=== PATIENT | male | born 1935 | race Caucasian/White ===

== ENCOUNTER 2017-07-17 05:58 | Day surgery (SDC) | payer MEDICARE, OTHER ==
[2017-07-03 11:01] LABS: HEMATOCRIT 40.9 % (37.9-51.0); HEMOGLOBIN 13.9 g/dL (13.5-17.0); MEAN CORPUSCULAR HEMOGLOBIN 33.1 pg (27.0-33.4); MEAN CORPUSCULAR HGB CONC 33.9 g/dL (32.0-36.0); MEAN CORPUSCULAR VOLUME 97 fl (80-97); PLATELET COUNT 134 10^3/uL (150-450); RED CELL DISTRIBUTION WIDTH 14.6 % (11.5-14.0); WHITE BLOOD COUNT 7.2 10^3/uL (4.0-10.5)
[2017-07-03 11:09] LABS: INTERNATIONAL RATION (INR) 1.04; PROTHROMBIN TIME 14.3 SEC (11.4-15.4)
[2017-07-03 11:28] LABS: ANION GAP 9 (5-19); BLOOD UREA NITROGEN 26 mg/dL (7-20); CARBON DIOXIDE 33 mmol/L (22-30); CHLORIDE 101 mmol/L (98-107); GLUCOSE 98 mg/dL (75-110); POTASSIUM 4.4 mmol/L (3.6-5.0); SODIUM 143.3 mmol/L (137-145)
--- NOTE | 2017-07-04 10:35 | EKG REPORT ---
SEVERITY:- ABNORMAL ECG - SINUS BRADYCARDIA NONSPECIFIC INTRAVENTRICULAR CONDUCTION DELAY : Confirmed by: Ac Emanuel 04-Jul-2017 10:34:39
[~2017-07-17 05:58] MED LIST: CEFAZOLIN 1 GM/D5W RTU 1 GM/50 ML RTUPB IV PRN; LACTATED RINGERS 1000 ML IV PRN
[2017-07-17 06:53] LABS: INTERNATIONAL RATION (INR) 0.99; PROTHROMBIN TIME 13.7 SEC (11.4-15.4)
[2017-07-17 06:54] LABS: PARTIAL THROMBOPLASTIN TIME 32.7 SEC (23.5-35.8)
[2017-07-17] MEDS ORDERED: FENTANYL CITRATE INJ/PF 100 MCG/2 ML AMPUL ONE (07:20)
[2017-07-17] MEDS ORDERED: MIDAZOLAM 2 MG/2 ML INJ ONE (07:21)
[2017-07-17] MEDS ORDERED: PROPOFOL INJ 200 MG/20 ML VIAL IV ONE (07:21)
[2017-07-17] MEDS ORDERED: CARVEDILOL 3.125 MG TABLET PO ONE (07:30)
[2017-07-17] MEDS ORDERED: SODIUM BICARBONATE 8.4% INJ 50 MEQ/50 ML DISP.SYRIN ONE (07:41)
[2017-07-17] MEDS ORDERED: LIDOCAINE 1% INJ-PF (10 MG/ML) 30 ML SDV ONE (07:41)
[2017-07-17] MEDS ORDERED: LIDOCAINE 2%/EPINEPHRINE INJ 20 ML VIAL ONE (07:42)
[2017-07-17] MEDS ORDERED: ONDANSETRON HCL INJ/PF 4 MG/2 ML SDV IV PRN (08:35)
[2017-07-17] MEDS ORDERED: DIPHENHYDRAMINE HCL 50 MG/ML VIAL IV PRN (08:35)
[2017-07-17] MEDS ORDERED: FENTANYL CITRATE INJ/PF 100 MCG/2 ML AMPUL IV PRN ×3 (08:35)
--- NOTE | 2017-07-17 09:50 | Operative Report ---
Operative Report DATE OF SURGERY: 07/17/17 PREOPERATIVE DIAGNOSIS: Basal cell carcinoma of the midline chest with positive lateral margins POSTOPERATIVE DIAGNOSIS: Same OPERATION: Excision of basal cell carcinoma of the midline chest with frozen section margin control and reconstruction with a boomerang sliding advancement flap SURGEON: ADRIANNA PROCTOR ANESTHESIA: LMAC TISSUE REMOVED OR ALTERED: Basal cell carcinoma COMPLICATIONS: None ESTIMATED BLOOD LOSS: Minimal PROCEDURE: Patient seen and was marked prior to being brought into the operating room. Patient was brought into the operating room and placed on the operating room table in a supine position. Patient was then prepped with a Betadine scrub and Betadine solution and draped in a sterile and aseptic manner. The area was then marked. 12 O'clock was marked towards the neck 3 O'clock was marked towards the left side 6:00 was marked towards the abdomen 9:00 was marked towards the right side The area was then anesthetized with 2% lidocaine with epinephrine and bicarbonate for its anesthetic and hemostatic effects. The area was then excised and marked at 12:00. The specimen was sent for frozen section. The results came back that the deep and lateral margins were free. We had considered a primary closure but this would go against the natural relaxed skin tension lines. A primary closure would be too tight and would have increased chance of dehiscence. The flap design that would be best for the patient would need to the least amount of tension and it was felt that more of a horizontal orientation would be better than a vertical orientation because of his breast anatomy. Anything else would leave more of a scar so we decided to use a boomerang flap reconstruction which would camouflage the scar better and take tension off of the closure so that would be less chances of complications. Then went ahead and outlined the flap and anesthetized it. Then incised the flap and developed a flap maintaining the subdermal plexus. Then we undermined 360 to allow for plate like scarring and minimize trap door deformity. Throughout the case hemostasis was achieved with the bipolar. We then sutured the flap into its new position using 3-0 Vicryl for the subcutaneous and deep dermis. Skin was closed with a running subcuticular suture stitch using 3-0 PDS with knots being tied on the outside. And 3-0 PDS suture was used for support and placed in the central area of the incision. We then applied tincture benzoin and Steri-Strips followed by a light pressure dressing. Patient was then reversed from anesthesia and taken to the [facility] for recovery. The patient tolerated well. There were no complications. Lesion size was approximately 2.2 x 2.4 cm please see pathology for actual size. Portions of this note may be dictated using [employer] voice recognition software. Occasional variations and spelling and vocabulary could be possible and are unintentional. Additionally, there is a chance that some errors may not be caught or corrected. Please notify the author of any discrepancies noted or if any statements are unclear.
--- NOTE | 2017-07-17 09:52 | PDOC DISCHARGE SUMMARY ---
Discharge Summary (SDC) - Discharge Final Diagnosis: Basal cell carcinoma of the midline chest Date of Surgery: 07/17/17 Condition: Good Treatment or Instructions: Leave the top dressing on for 2 days, then removed. Leave the steri-strip tapes on for 5 days, then removal. Then cleaning wound with peroxide and apply Neosporin/bacitracin 3 times per day. Antibiotics for 1 day, then discontinue. Elevate operative area to decrease swelling. Do not strain, or lift heavy objects. Call for excessive bleeding, increased temperature of 101, uncontrolled pain, or excessive nausea or vomiting. You may reach Dr. Waters through his office at [phone]. In the event of an emergency after hours, then contact Dr. Waters through [facility]. Return to the office for a postop check on . The time will be scheduled by the nursing staff of [facility] prior to discharge. Please give the patient a copy of their labs and EKG so they can bring this to their PMD. Thank you Portions of this note may be dictated using [employer] voice recognition software. Occasional variations and spelling and vocabulary could be possible and are unintentional. Additionally, there is a chance that some errors may not be caught or corrected. Please notify the offer of any discrepancies noted or if any statements are unclear. Referrals: BRYANNA COLLINS MD [Primary Care Provider] - Discharge Diet: As Tolerated Report the Following to Your Physician Immediately: Unusual Bleeding - Keep chest elevated. No bending or straining.
--- NOTE | 2017-07-17 11:40 | PDOC PROGRESS REPORT ---
Subjective Progress Note for:: 07/17/17 Reason For Visit: C44.519 BASAL CELL CARCINOMA OF SKIN OF OTHER PART Leave the top dressing on for 2 days, then removed. Leave the steri-strip tapes on for 5 days, then removal. Then cleaning wound with peroxide and apply Neosporin/bacitracin 3 times per day. Antibiotics for 1 day, then discontinue. Elevate operative area to decrease swelling. Do not strain, or lift heavy objects. Call for excessive bleeding, increased temperature of 101, uncontrolled pain, or excessive nausea or vomiting. You may reach Dr. Waters through his office at [phone]. In the event of an emergency after hours, then contact Dr. Waters through [facility]. Return to the office for a postop check on . The time will be scheduled by the nursing staff of [facility] prior to discharge. Please give the patient a copy of their labs and EKG so they can bring this to their PMD. Thank you Portions of this note may be dictated using [employer] voice recognition software. Occasional variations and spelling and vocabulary could be possible and are unintentional. Additionally, there is a chance that some errors may not be caught or corrected. Please notify the offer of any discrepancies noted or if any statements are unclear. Physical Exam Vital Signs: Temp Pulse Resp BP Pulse Ox 97.6 F 45 L 18 123/66 99 07/17/17 10:20 07/17/17 10:50 07/17/17 10:50 07/17/17 10:50 07/17/17 10:50 Intake & Output 07/16/17 07/17/17 07/18/17 06:59 06:59 06:59 Intake Total 0 500 Balance 0 500 Weight 90.72 kg Results Laboratory Results: 07/03/17 10:19 07/17/17 06:35 07/17/17 06:35 Potassium 4.0
[2017-07-17 11:56] VITALS: BP 124/55
== END 2017-07-17 11:20 | disposition home or self-care (01) ==
LOC: OROUT 05:58
PROVIDERS: ATTEND Plastic Surgery
PROC: 0HB5XZZ Excision of Chest Skin, External Approach (ICD-10-PCS; 2017-07-17)
PROC: 0HX5XZZ Transfer Chest Skin, External Approach (ICD-10-PCS; principal; 2017-07-17 08:00)
DX: C44.519 Basal cell carcinoma of skin of other part of trunk (principal); I10 Essential (primary) hypertension; M19.90 Unspecified osteoarthritis, unspecified site; Z96.659 Presence of unspecified artificial knee joint; Z79.899 Other long term (current) drug therapy; Z79.82 Long term (current) use of aspirin; Z79.01 Long term (current) use of anticoagulants; Z79.891 Long term (current) use of opiate analgesic; Z86.73 Personal history of transient ischemic attack (TIA), and cerebral infarction without residual deficits
CPT/HCPCS: 93005; 36415 ×2; 84132; 85027; 85610 ×2; 85730 ×2; 80048; 88305 ×2; 88331 ×2; 93010; 14000; J2250; J0690; J3490 ×2; J2704; A9270; 400; J3010

== ENCOUNTER → 2017-08-21 | Outpatient (CLI) | payer MEDICARE, OTHER ==
--- NOTE | 2017-08-21 13:56 | XCELERA REPORT ---
[address] [address] Lower Extremity Arterial Evaluation Name: JAYME LAI Age: 82 yrs Gender: Male : 1935 Patient Status: Outpatient Patient Location: Study Date: 08/21/2017 08:58 AM Procedure: A color flow and duplex scan of the lower extremity arteries was performed bilaterally with velocity and waveform anaylsis. Ankle brachial indicies performed. Reason For Study: PVD Ordering Physician: SOCORRO LOW Performed By: Lydia Parekh Measurements and Calculations Right Left AREA MANAGER PSV 143.8 172.9 cm/sec Prox PFA PSV 75.1 79.1 cm/sec Prox SFA PSV 125.1 127.0 cm/sec Mid SFA PSV -115.0 -72.2 cm/sec Dist SFA PSV -83.0 -43.1 cm/sec Prox Pop A PSV 62.0 56.3 cm/sec Dist JANIA PSV 73.3 28.6 cm/sec Dist EXTRUDER OPERATOR HORIZONTAL PSV -71.9 52.8 cm/sec Matt Pedis PSV 55.2 12.7 cm/sec Right Side Arterial Evaluation Normal velocity and triphasic waveforms noted from the Common Femoral artery to the Posterior Tibial artery .Biphasic in the Deep Femoral and Anterior Tibial arteries. 20-49 % stenosis at the Deep Femoral and Anterior Tibial arteries. Ankle Brachial index is 1.13. Left Side Arterial Evaluation Normal velocity and triphasic waveforms noted from the Common Femoral artery to the Popliteal artery .Biphasic in the Deep Femoral and infrageniculate arteries. Monophasic, reduced flow in the Dorsalis Pedis artery. 20-49 % stenosis at the Deep Femoral and infrageniculate . Ankle Brachial index is 1.15. Interpretation Summary Mild hemodynamically significant lesions in the right lower extremity only, on duplex imaging, at rest. Moderate hemodynamically significant lesions in the left lower extremity only, on duplex imaging, at rest. : SOCORRO LOW > Hayden Olivares
== END ==
LOC: SP 08:37
PROVIDERS: ATTEND Podiatrist Foot Surgery
DX: I73.9 Peripheral vascular disease, unspecified (principal)
CPT/HCPCS: 93925

== ENCOUNTER → 2017-09-03 | Outpatient (CLI) | payer MEDICARE, OTHER ==
--- NOTE | 2017-09-03 15:12 | RADIOLOGY REPORT (SQ) ---
EXAM DESCRIPTION: CAROTID DOPPLER COMPLETED DATE/TIME: 09/03/2017 2:47 pm REASON FOR STUDY: STENOSIS I65.23 OCCLUSION AND STENOSIS OF BILATERAL CAROTID ARTERIES COMPARISON: None. TECHNIQUE: Grayscale ultrasound, Doppler velocity and spectra, and color Doppler images acquired of the extra-cranial carotid and vertebral arteries. Images stored on PACS. LIMITATIONS: None. FINDINGS: RIGHT CAROTID CCA Velocities: Within normal limits. ICA Velocities Peak systolic 1.54 m/s. End diastolic 0.35 m/s. Proximal ICA/CCA peak systolic ratio 2.01. Atherosclerotic plaquing is identified. The flow velocities are consistent with a 50 to 69% stenosis in the right internal carotid artery LEFT CAROTID CCA Velocities: Within normal limits. ICA Velocities Peak systolic 1.22 m/s. End diastolic 0.25 m/s. Proximal ICA/CCA peak systolic ratio 1.2. Spectra normal. No significant plaque. VERTEBRAL ARTERIES: Antegrade flow. Normal waveforms. SUBCLAVIAN ARTERIES: No finding. OTHER: No other significant finding. IMPRESSION: Flow velocities in the right internal carotid artery are consistent with a 50 to 69% cheryl nosis. No other hemodynamically significant stenoses are identified. COMMENT: Quality ID #[id number]: Velocity criteria are extrapolated from the diameter data as defined by t he Society of Radiologists in Ultrasound Consensus Conference. Radiology 2003: 229; 340-346. TECHNICAL DOCUMENTATION: JOB ID: [id number] [employer]- All Rights Reserved Reading location - IP/workstation name: [email or web address]
== END ==
LOC: SP 12:52
PROVIDERS: ATTEND Internal Medicine Cardiovascular Disease
DX: I65.23 Occlusion and stenosis of bilateral carotid arteries (principal)
CPT/HCPCS: 93880

== ENCOUNTER 2018-09-23 21:03 | Emergency (ER) | payer MEDICARE, OTHER ==
[2018-09-23] MEDS ORDERED: ASPIRIN 81 MG TABLET, CHEWABLE PO ONE (21:10)
--- NOTE | 2018-09-23 21:16 | ER Document Report ---
ED Medical Screen (RME) - General Chief Complaint: Urinary Incontinence Stated Complaint: WEAKNESS Time Seen by Provider: 09/23/18 21:09 Primary Care Provider: LOVE LIRIANO MD [Primary Care Provider] - Follow up as needed Notes: Pt. stated he had a procedure on his prostate on Sunday and has had bleeding from his penis ever since. Stated he feels very weak and lightheaded, Heaviness in chest. Pt. is diaphoretic and tachypenic. I have greeted and performed a rapid initial assessment of this patient. A comprehensive ED assessment and evaluation of the patient, analysis of test results and completion of the medical decision making process will be conducted by additional ED providers. TRAVEL OUTSIDE OF THE [place] IN LAST 30 DAYS: No - Related Data Allergies/Adverse Reactions: tuberculin, purified protein deriva [Tuberculin,Purif.Prot.Deriv.] Allergy (Severe, Verified 07/17/17 07:11) Past Medical History - Past Medical History Cardiac Medical History: Reports: Hx Hypercholesterolemia, Hx Hypertension Denies: Hx Coronary Artery Disease, Hx Heart Attack Pulmonary Medical History: Denies: Hx Asthma, Hx Bronchitis, Hx COPD, Hx Pneumonia Neurological Medical History: Reports: Hx Cerebrovascular Accident - 3 YRS AGO. Denies: Hx Seizures GI Medical History: Denies: Hx Hepatitis, Hx Hiatal Hernia, Hx Ulcer Musculoskeltal Medical History: Reports Hx Arthritis - GENERALIZED Infectious Medical History: Denies: Hx Hepatitis Past Surgical History: Reports: Hx Appendectomy, Hx Cholecystectomy. Denies: Hx Open Heart Surgery, Hx Pacemaker - Immunizations Hx Diphtheria, Pertussis, Tetanus Vaccination: No History of Influenza Vaccine for 04/2017 - 08/2017 Season: Yes Influenza Administration Date for 04/2017 - 08/2017 Season: 05/02/18 Doctor's Discharge - Discharge Referrals: LOVE LIRIANO MD [Primary Care Provider] - Follow up as needed
--- NOTE | 2018-09-23 21:26 | EKG REPORT ---
SEVERITY:- ABNORMAL ECG - ATRIAL FLUTTER BORDERLINE T ABNORMALITIES, INFERIOR LEADS : Confirmed by: Belem Roman MD 23-Sep-2018 21:25:51
--- NOTE | 2018-09-23 21:42 | RADIOLOGY REPORT (SQ) ---
XR CHEST 1 VIEW HISTORY: SOB/weakness. COMPARISON: None. FINDINGS: The heart size is normal. No consolidation, pleural effusion, or pneumothorax is seen. Generalized osteopenia is present. IMPRESSION: No evidence of acute cardiopulmonary disease.
--- NOTE | 2018-09-23 22:32 | ER Document Report ---
ED General - General Chief Complaint: Urinary Incontinence Stated Complaint: WEAKNESS Time Seen by Provider: 09/23/18 21:09 Primary Care Provider: MARY CUELLAR MD [NO LOCAL MD] - Follow up tomorrow Notes: Patient is a 83-year-old male who presents with complaint of urinary distention. Chief complaints of weakness however the patient says he does not feel weak. He says he feels well except for the pain and the sensation that he cannot empty his bladder. Patient saw Dr. Cuellar, urologist, on Sunday and had a uro-lift implant placed. Says since then he will feel like FDP and sometimes can release the P but the last 12 hours has had difficulty releasing a significant amount of urine. He is also noticed some blood in his urine. He also was recently started on Pyridium the last 24 hours. No fevers. No vomiting. No other complaints at this time. No chest pain. No shortness of breath. TRAVEL OUTSIDE OF THE [place] IN LAST 30 DAYS: No - Related Data Allergies/Adverse Reactions: tuberculin, purified protein deriva [Tuberculin,Purif.Prot.Deriv.] Allergy (Severe, Verified 07/17/17 07:11) Past Medical History - Social History Smoking Status: Never Smoker Frequency of alcohol use: None Drug Abuse: None Family History: Reviewed & Not Pertinent - Past Medical History Cardiac Medical History: Reports: Hx Hypercholesterolemia, Hx Hypertension Denies: Hx Coronary Artery Disease, Hx Heart Attack Pulmonary Medical History: Denies: Hx Asthma, Hx Bronchitis, Hx COPD, Hx Pneumonia Neurological Medical History: Reports: Hx Cerebrovascular Accident - 3 YRS AGO. Denies: Hx Seizures GI Medical History: Denies: Hx Hepatitis, Hx Hiatal Hernia, Hx Ulcer Musculoskeletal Medical History: Reports Hx Arthritis - GENERALIZED Infectious Medical History: Denies: Hx Hepatitis Past Surgical History: Reports: Hx Appendectomy, Hx Cholecystectomy. Denies: Hx Open Heart Surgery, Hx Pacemaker - Immunizations Hx Diphtheria, Pertussis, Tetanus Vaccination: No Hx Pneumococcal Vaccination: 05/02/12 Review of Systems - Review of Systems Notes: My Normal Review Basic REVIEW OF SYSTEMS: CONSTITUTIONAL : Denies fever, chills, or sweats. Denies recent illness. EENT: Denies eye, ear, throat, or mouth pain or symptoms. Denies nasal or sinus congestion. CARDIOVASCULAR: Denies chest pain. RESPIRATORY: Denies cough, cold, or chest congestion. Denies shortness of breath, difficulty breathing, or wheezing. GASTROINTESTINAL: suprapubic abdominal pain. Denies nausea, vomiting, or diarrhea. GENITOURINARY: Dysuria. Hematuria. MUSCULOSKELETAL: Denies neck or back pain or joint pain or swelling. HEMATOLOGIC : Eliquis NEUROLOGICAL: Denies altered mental status or loss of consciousness. Denies headache. Denies weakness or paralysis or loss of use of either side. Denies p roblems with gait or speech. Denies sensory or motor loss. ALL OTHER SYSTEMS REVIEWED AND NEGATIVE. Physical Exam - Vital signs Vitals: Pulse Ox 94 09/23/18 21:10 - Notes Notes: General Appearance: Well nourished, alert, cooperative, no acute distress, mild obvious discomfort. Vitals: reviewed, See vital signs table. Lungs: No wheezing, No rales, No rhonci, No accessory muscle use, good air exchange bilaterally. Heart: Normal rate, Regular rythm, No murmur, no rub Abdomen: Normal BS, soft, No rigidity, very mild suprapubic abdominal tenderness, No guarding, no rebound, no abdominal masses, no organomegaly Genital: No active bleeding from the external urethral meatus. Patient does have some small clots and blood in his depends. Extremities: strength 5/5 in all extremities, good pulses in all extremities, no swelling or tenderness in the extremities, no edema. Skin: warm, dry, appropriate color, no rash Neuro: speech clear, oriented x 3, normal affect, responds appropriately to questions. Course - Re-evaluation Re-evalutation: 09/23/18 23:[address] Cuellar, urologist, he says it is okay to place a Neely catheter. He said the Place Neely catheter to flush out his bladder and suck out clots. After that he can be discharged home to follow-up with him in his office. He is to leave the catheter in place. We will place a catheter and check his blood counts to make sure he is not significantly anemic. We will make sure that he has good relief and resolution. After catheter placement patient feels much improved. His symptoms have resolved. His urine initially had some blood in it. Now it is more just orange from the Pyridium. He may be has a little bit of scant blood still mixed with the urine however it is very small amount. No further clots. Give the patient a leg bag. Urine does show some signs of infection therefore placed him on Keflex. I informed he is to call the office this morning to follow-up closely with Dr. Cuellar. I strongly encouraged him return to ER immediately if he has fevers, heavy bleeding, vomiting, worsening pain, or if he feels unwell. Patient agrees with plan will be discharged home. Dictation of this chart was performed using voice recognition software; therefore, there may be some unintended grammatical errors. 09/24/18 06:54 - Vital Signs Vital signs: Temp Pulse Resp BP Pulse Ox 97.7 F 79 12 114/74 97 09/23/18 23:08 09/23/18 21:12 09/24/18 02:01 09/24/18 02:01 09/24/18 02:01 - Laboratory Result Diagrams: 09/24/18 00:54 09/24/18 00:54 Laboratory results interpreted by me: 09/23/18 09/24/18 09/24/18 23:20 00:54 00:54 RBC 4.21 L RDW 14.7 H Plt Count 130 L Potassium 3.5 L BUN 32 H Creatinine 1.42 H Est GFR ( Amer) 58 L Est GFR (Non-Af Amer) 48 L AST 76 H Creatine Kinase 529 H Urine Protein 100 H Urine Blood LARGE H Urine Nitrite POSITIVE H Urine Urobilinogen 2.0 H Ur Leukocyte Esterase TRACE H Urine Ascorbic Acid 40 H - EKG Interpretation by Me Additional EKG results interpreted by me: 09/23/18 22:11 EKG is reviewed and interpreted by me. EKG shows atrial flutter with variable block with a rate of [address] segment elevation or depression. Occasional PVC. QRS duration and QT intervals are within normal range. Old EKG for kaila yadav is from July 03, 2017. Discharge - Discharge Clinical Impression: Urinary retention, Hematuria, UTI (urinary tract infection) Condition: Stable Disposition: HOME, SELF-CARE Additional Instructions: We will be given a leg bag to wear through Neely catheter. I did speak with Dr. Culelar. He wants to follow-up in the office this week. He wanted to call the office this morning to make a close follow-up appointment. Your urine test did show some evidence of infection. We will you on an antibiotic. Please have a low threshold to return to ER if you have fevers, vomiting, inability to pass urine despite the catheter, if you feel unwell. The medicine you are on will make your urine a orangeish type color. If you start passing clots or having increasing blood in urine then you should return to the ER for evaluation. Also, return to ER if you are feeling very weak or lightheaded. Prescriptions: Cephalexin Monohydrate [Keflex 500 mg Capsule] 500 mg PO BID #14 capsule Referrals: MARY CUELLAR MD [NO LOCAL MD] - Follow up tomorrow
[2018-09-23] MEDS ORDERED: LIDOCAINE 2% URO-JET 5 ML KIT MM ONE (23:08)
[2018-09-23 23:58] LABS: AMORPHOUS SEDIMENT,URINE TRACE /HPF; APPEARANCE,URINE CLOUDY; BILIRUBIN,URINE NEGATIVE (NEGATIVE); COLOR,URINE AMBER; GLUCOSE, URINE NEGATIVE (NEGATIVE); KETONES,URINE NEGATIVE (NEGATIVE); LEUKOCYTE ESTERASE,URINE TRACE (NEGATIVE); NITRITE,URINE POSITIVE (NEGATIVE); PROTEIN,URINE 100 mg/dL (NEGATIVE); URINE SPECIFIC GRAVITY 1.012
[2018-09-24 01:15] LABS: ABSOLUTE BASOPHILS # (AUTO) 0.1 10^3/uL (0.0-0.2); ABSOLUTE EOSINOPHILS # (AUTO) 0.5 10^3/uL (0.0-0.6); ABSOLUTE LYMPHOCYTES (AUTO) 2.1 10^3/uL (0.5-4.7); ABSOLUTE MONOCYTES (AUTO) 1.1 10^3/uL (0.1-1.4); ABSOLUTE NEUT (AUTO) 4.9 10^3/uL (1.7-8.2); EOSINOPHILS % (AUTO) 5.5 % (0-6); HEMATOCRIT 40.5 % (37.9-51.0); LYMPHOCYTES % (AUTO) 24.4 % (13-45); MEAN CORPUSCULAR HEMOGLOBIN 33.3 pg (27.0-33.4); MEAN CORPUSCULAR HGB CONC 34.7 g/dL (32.0-36.0); MEAN CORPUSCULAR VOLUME 96 fl (80-97); MONOCYTES % (AUTO) 12.3 % (3-13); PLATELET COUNT 130 10^3/uL (150-450); RED BLOOD COUNT 4.21 10^6/uL (4.35-5.55); RED CELL DISTRIBUTION WIDTH 14.7 % (11.5-14.0); SEGMENTED NEUTROPHILS % (AUTO) 56.8 % (42-78); TOTAL CELLS COUNTED % (AUTO) 100 %; WHITE BLOOD COUNT 8.6 10^3/uL (4.0-10.5)
[2018-09-24 01:30] LABS: ALANINE AMINOTRANSFERASE 40 U/L (21-72); ALBUMIN 3.6 g/dL (3.5-5.0); ALKALINE PHOSPHATASE 93 U/L (38-126); ANION GAP 9 (5-19); ASPARTATE AMINO TRANSFERASE 76 U/L (17-59); BILIRUBIN,TOTAL 1.1 mg/dL (0.2-1.3); BLOOD UREA NITROGEN 32 mg/dL (7-20); CALCIUM 9.5 mg/dL (8.4-10.2); CARBON DIOXIDE 25 mmol/L (22-30); CHLORIDE 103 mmol/L (98-107); CREATINE KINASE 529 U/L (55-170); GLUCOSE 99 mg/dL (75-110); POTASSIUM 3.5 mmol/L (3.6-5.0); SODIUM 137.4 mmol/L (137-145); TOTAL PROTEIN 6.9 g/dL (6.3-8.2)
[2018-09-24 01:42] LABS: CREATINE KINASE MB 3.96 ng/mL (<4.55)
[2018-09-24 01:45] LABS: TROPONIN I 0.044 ng/mL
[2018-09-24 02:13] LABS: INTERNATIONAL RATION (INR) 1.16; PROTHROMBIN TIME 15.4 SEC (11.4-15.4)
[2018-09-24 02:53] VITALS: BP 114/74
== END 2018-09-24 03:23 | disposition home or self-care (01) ==
LOC: ER 21:03
DX: N39.0 Urinary tract infection, site not specified (principal); R31.9 Hematuria, unspecified; R33.9 Retention of urine, unspecified; I10 Essential (primary) hypertension; E78.00 Pure hypercholesterolemia, unspecified; Z90.49 Acquired absence of other specified parts of digestive tract; Z86.73 Personal history of transient ischemic attack (TIA), and cerebral infarction without residual deficits
CPT/HCPCS: 93005; 99283; 51702; 36415; 87086; 82553; 82550; 85025; 85610; 80053; 81001; 84484; 71045; 93010; A9270 ×2; J3490

== ENCOUNTER → 2018-10-09 | Outpatient (CLI) | payer MEDICARE, OTHER ==
--- NOTE | 2018-10-09 17:01 | RADIOLOGY REPORT (SQ) ---
EXAM DESCRIPTION: CAROTID DOPPLER COMPLETED DATE/TIME: 10/09/2018 3:29 pm REASON FOR STUDY: OCCLUSION AND STENOSIS OF BILATERAL CAROTID I65.23 OCCLUSION AND STENOSIS OF BILA TERAL CAROTID ARTERIES COMPARISON: 09/03/2017 TECHNIQUE: Grayscale ultrasound, Doppler velocity and spectra, and color Doppler images acquired of the extra-cranial carotid and vertebral arteries. Images stored on PACS. LIMITATIONS: None. FINDINGS: RIGHT CAROTID CCA Velocities: Within normal limits. ICA Velocities Peak systolic 82 cm/s. End diastolic 25 cm/s. Proximal ICA/CCA peak systolic ratio 1.98. Spectra normal. Eccentric calcified plaque just distal to the bifurcation with less than 50% stenosi s by grayscale evaluation. LEFT CAROTID CCA Velocities: Within normal limits. Heterogeneous eccentric plaque with less than 50% stenosis by grayscale evaluation. ICA Velocities Peak systolic 73 cm/s. End diastolic 12 cm/s. Proximal ICA/CCA peak systolic ratio 2.28. Spectra normal. No significant plaque. VERTEBRAL ARTERIES: Antegrade flow. Normal waveforms. SUBCLAVIAN ARTERIES: Not imaged OTHER: No other significant finding. IMPRESSION: 1. Fow velocities in the right internal carotid artery compatible with less than 50% st enosis, improved compared to prior exam. 2. Flow velocities in the left internal carotid artery compatible with less than 50% stenosis. ICA/ CCA ratio suggestive of 50- 69% stenosis but likely falsely elevated secondary to low common carotid velocities. COMMENT: Quality ID #195: Velocity criteria are extrapolated from the diameter data as defined by t he Society of Radiologists in Ultrasound Consensus Conference. Radiology 2003: 229; 340-346. TECHNICAL DOCUMENTATION: JOB ID: [id number] [employer]- All Rights Reserved Reading location - IP/workstation name: [email or web address]
== END ==
LOC: SP 14:23
PROVIDERS: ATTEND Internal Medicine Cardiovascular Disease
DX: I65.23 Occlusion and stenosis of bilateral carotid arteries (principal)
CPT/HCPCS: 93880

== ENCOUNTER 2019-10-07 12:22 | Emergency (ER) | payer MEDICARE, OTHER ==
[2019-10-07 12:28] VITALS: BP 122/67
[2019-10-07] MEDS ORDERED: OXYMETAZOLINE HCL 0.05% NASAL SPRAY 15 ML BOTTLE NASL ONE (12:36)
--- NOTE | 2019-10-07 12:38 | ER Document Report ---
ED Medical Screen (RME) - General Chief Complaint: Nose Bleed Stated Complaint: NOSE BLEEDING Time Seen by Provider: 10/07/19 12:33 Primary Care Provider: LOVE LIRIANO MD [Primary Care Provider] - Follow up as needed Notes: HPI: 84-year-old male who is on Eliquis and aspirin presenting for left nasal bleed that started around 5 this morning. Patient states it stopped on his way into the hospital. Denies chest pain shortness of breath. States he did have a nosebleed like this 3 months ago that stopped on its own and he did not have it evaluated. I have greeted and performed a rapid initial assessment of this patient. A comprehensive ED assessment and evaluation of the patient, analysis of test results and completion of the medical decision making process will be conducted by additional ED providers PHYSICAL EXAMINATION: No active bleeding in the posterior pharynx. There is some blood in the left nostril but no definitive anterior site on exam in triage I have greeted and performed a rapid initial assessment of this patient. A comprehensive ED assessment and evaluation of the patient, analysis of test results and completion of medical decision making process will be conducted by an additional ED providers. TRAVEL OUTSIDE OF THE [place] IN LAST 30 DAYS: No - Related Data Allergies/Adverse Reactions: tuberculin, purified protein deriva [Tuberculin,Purif.Prot.Deriv.] Allergy (Severe, Verified 07/17/17 07:11) Past Medical History - Past Medical History Cardiac Medical History: Reports: Hx Hypercholesterolemia, Hx Hypertension Denies: Hx Coronary Artery Disease, Hx Heart Attack Pulmonary Medical History: Denies: Hx Asthma, Hx Bronchitis, Hx COPD, Hx Pneumonia Neurological Medical History: Reports: Hx Cerebrovascular Accident - 3 YRS AGO. Denies: Hx Seizures Renal/ Medical History: Denies: Hx Peritoneal Dialysis GI Medical History: Denies: Hx Hepatitis, Hx Hiatal Hernia, Hx Ulcer Musculoskeltal Medical History: Reports Hx Arthritis - GENERALIZED Infectious Medical History: Denies: Hx Hepatitis Past Surgical History: Reports: Hx Appendectomy, Hx Cholecystectomy. Denies: Hx Open Heart Surgery, Hx Pacemaker - Immunizations Hx Diphtheria, Pertussis, Tetanus Vaccination: No Physical Exam - Vital signs Vitals: Temp Pulse Resp BP Pulse Ox 97.7 F 85 20 122/67 96 10/07/19 12:27 10/07/19 12:27 10/07/19 12:27 10/07/19 12:27 10/07/19 12:27 Course - Vital Signs Vital signs: Temp Pulse Resp BP Pulse Ox 97.7 F 85 20 122/67 96 10/07/19 12:27 10/07/19 12:27 10/07/19 12:27 10/07/19 12:27 10/07/19 12:27 Doctor's Discharge - Discharge Referrals: LOVE LIRIANO MD [Primary Care Provider] - Follow up as needed
[2019-10-07 13:01] LABS: ABSOLUTE BASOPHILS # (AUTO) 0.1 10^3/uL (0.0-0.2); ABSOLUTE EOSINOPHILS # (AUTO) 0.5 10^3/uL (0.0-0.6); ABSOLUTE LYMPHOCYTES (AUTO) 1.6 10^3/uL (0.5-4.7); ABSOLUTE MONOCYTES (AUTO) 0.5 10^3/uL (0.1-1.4); BASOPHILS % (AUTO) 1.3 % (0-2); EOSINOPHILS % (AUTO) 8.7 % (0-6); HEMATOCRIT 45.2 % (37.9-51.0); HEMOGLOBIN 15.8 g/dL (13.5-17.0); LYMPHOCYTES % (AUTO) 28.7 % (13-45); MEAN CORPUSCULAR HEMOGLOBIN 34.6 pg (27.0-33.4); MEAN CORPUSCULAR VOLUME 99 fl (80-97); MONOCYTES % (AUTO) 8.5 % (3-13); PLATELET COUNT 132 10^3/uL (150-450); RED BLOOD COUNT 4.56 10^6/uL (4.35-5.55); RED CELL DISTRIBUTION WIDTH 14.1 % (11.5-14.0); SEGMENTED NEUTROPHILS % (AUTO) 52.8 % (42-78); TOTAL CELLS COUNTED % (AUTO) 100 %; WHITE BLOOD COUNT 5.7 10^3/uL (4.0-10.5)
[2019-10-07 13:11] LABS: INTERNATIONAL RATION (INR) 1.14; PROTHROMBIN TIME 14.7 SEC (11.4-15.4)
--- NOTE | 2019-10-07 13:11 | ER Document Report ---
ED General - General Mode of Arrival: Ambulatory Information source: Patient TRAVEL OUTSIDE OF THE [place] IN LAST 30 DAYS: No <CHRISTIN NUNO JR - Last Filed: 10/07/19 13:10> <SHERMAN SHIELDS - Last Filed: 10/07/19 14:47> - General Chief Complaint: Nose Bleed Stated Complaint: NOSE BLEEDING Time Seen by Provider: 10/07/19 12:33 Primary Care Provider: LOVE LIRIANO MD [ASSOCIATE] - Follow up as needed Notes: per triage Pt arrives to triage with a steady gait. Pt states that at around 0530 today he started to have epistaxis to the left nostril. pt is on eliquis 2.5mg BID. PT denies any known injury. Bleeding is currently controlled, pt reports bleeding stopped around noon. PT denies any other distress. PT is a&ox4 with e/u respirations. (CHRISTIN NUNO JR) - Related Data Allergies/Adverse Reactions: tuberculin, purified protein deriva [Tuberculin,Purif.Prot.Deriv.] Allergy (Severe, Verified 07/17/17 07:11) Past Medical History - Social History Smoking Status: Never Smoker Family History: Reviewed & Not Pertinent Patient has suicidal ideation: No Patient has homicidal ideation: No - Past Medical History Cardiac Medical History: Reports: Hx Hypercholesterolemia, Hx Hypertension Denies: Hx Coronary Artery Disease, Hx Heart Attack Pulmonary Medical History: Denies: Hx Asthma, Hx Bronchitis, Hx COPD, Hx Pneumonia Neurological Medical History: Reports: Hx Cerebrovascular Accident - 3 YRS AGO. Denies: Hx Seizures Renal/ Medical History: Denies: Hx Peritoneal Dialysis GI Medical History: Denies: Hx Hepatitis, Hx Hiatal Hernia, Hx Ulcer Musculoskeletal Medical History: Reports Hx Arthritis - GENERALIZED Infectious Medical History: Denies: Hx Hepatitis Past Surgical History: Reports: Hx Appendectomy, Hx Cholecystectomy. Denies: Hx Open Heart Surgery, Hx Pacemaker - Immunizations Hx Diphtheria, Pertussis, Tetanus Vaccination: No Hx Pneumococcal Vaccination: 05/02/12 <CHRISTIN NUNO JR - Last Filed: 10/07/19 13:10> Review of Systems <SHERMAN SHIELDS - Last Filed: 10/07/19 14:47> - Review of Systems Notes: Constitutional: Negative for fever. HENT: + Nosebleed. Eyes: Negative for visual changes. Cardiovascular: Negative for chest pain. Respiratory: Negative for shortness of breath. Gastrointestinal: Negative for abdominal pain, vomiting or diarrhea. Genitourinary: Negative for dysuria. Musculoskeletal: Negative for back pain. Skin: Negative for rash. Neurological: Negative for headaches, weakness or numbness. 10 point ROS negative except as marked above and in HPI. (SHERMAN SHIELDS) Physical Exam <SHERMAN SHIELDS - Last Filed: 10/07/19 14:47> - Vital signs Vitals: Temp Pulse Resp BP Pulse Ox 97.7 F 85 20 122/67 96 10/07/19 12:27 10/07/19 12:27 10/07/19 12:27 10/07/19 12:27 10/07/19 12:27 - Notes Notes: PHYSICAL EXAMINATION: Physical Exam: General: Pleasant elderly male in no acute distress HEENT: NC/AT, pupils equal round and reactive to light, MM moist,nares clear, oropharynx clear, airway patent, packing right nostril, no active bleeding. Neck: supple, no adenopathy, no masses. Good range of motion Lungs: clear, no wheezing, no rales no rhonchi CVS: Regular rate and rhythm no murmur gallop or rub Abdomen: Soft, active, nontender, no masses, no hepatosplenomegaly Ext: No edema, clubbing or cyanosis. Neuro: Alert and responsive, moving all 4 extremities on command, cranial nerves intact, no focal findings Skin: Intact no open lesions, no rash PSYCH: Normal mood, normal affect. (SHERMAN SHIELDS) Course - Laboratory Result Diagrams: 10/07/19 12:46 10/07/19 12:46 <CHRISTIN NUNO JR - Last Filed: 10/07/19 13:10> - Laboratory Result Diagrams: 10/07/19 12:46 10/07/19 12:46 <SHERMAN SHIELDS - Last Filed: 10/07/19 14:47> - Re-evaluation Re-evalutation: 10/07/19 14:43 Apparently nasal spray and a gauze was placed in the left nostril patient has been free of active bleeding since 1030 this morning. States that he is ready to go home. (SHERMAN SHIELDS) - Vital Signs Vital signs: Temp Pulse Resp BP Pulse Ox 97.7 F 85 20 122/67 96 10/07/19 12:27 10/07/19 12:27 10/07/19 12:27 10/07/19 12:27 10/07/19 12:27 - Laboratory Laboratory results interpreted by me: 10/07/19 10/07/19 12:46 12:46 MCV 99 H MCH 34.6 H RDW 14.1 H Plt Count 132 L Eos % (Auto) 8.7 H BUN 26 H Creatinine 1.31 H Est GFR (MDRD) Non-Af 52 L Glucose 115 H Total Bilirubin 1.5 H Discharge <CHRISTIN NUNO JR - Last Filed: 10/07/19 13:10> <SHERMAN SHIELDS - Last Filed: 10/07/19 14:47> - Discharge Clinical Impression: Epistaxis Condition: Good Disposition: HOME, SELF-CARE Instructions: Nosebleed Instructions (OM) Additional Instructions: You were treated for nosebleed in the emergency department today. If the bleeding occurs please spray the nasal spray twice and to the affected nostril and apply pressure. If the bleeding is uncontrolled please feel free to return to the emergency department for further evaluation and treatment. Referrals: LOVE LIRIANO MD [ASSOCIATE] - Follow up as needed
[2019-10-07 13:24] LABS: ALBUMIN 4.1 g/dL (3.5-5.0); ALKALINE PHOSPHATASE 97 U/L (38-126); ANION GAP 6 (5-19); ASPARTATE AMINO TRANSFERASE 36 U/L (17-59); BILIRUBIN,TOTAL 1.5 mg/dL (0.2-1.3); BLOOD UREA NITROGEN 26 mg/dL (7-20); CALCIUM 9.5 mg/dL (8.4-10.2); CARBON DIOXIDE 30 mmol/L (22-30); CHLORIDE 103 mmol/L (98-107); GLUCOSE 115 mg/dL (75-110)
== END 2019-10-07 15:14 | disposition home or self-care (01) ==
LOC: ER 12:22
DX: R04.0 Epistaxis (principal); E78.00 Pure hypercholesterolemia, unspecified; I10 Essential (primary) hypertension; Z86.73 Personal history of transient ischemic attack (TIA), and cerebral infarction without residual deficits; Z90.49 Acquired absence of other specified parts of digestive tract
CPT/HCPCS: 99283; 36415; 85025; 85610; 80053; A9270; J3490

== ENCOUNTER → 2019-10-13 | Outpatient (CLI) | payer MEDICARE, OTHER ==
--- NOTE | 2019-10-13 14:54 | RADIOLOGY REPORT (SQ) ---
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 TECHNIQUE: Grayscale ultrasound, Doppler velocity and spectra, and color Doppler images acquired of the extra-cranial carotid and vertebral arteries. Images stored on PACS. LIMITATIONS: None. FINDINGS: RIGHT CAROTID CCA Velocities: Within normal limits. ICA Velocities Peak systolic 1.0 m/s. End diastolic 0.37 m/s. Proximal ICA/CCA peak systolic ratio 1.7. Heterogeneous plaque in the internal carotid with less than 50% luminal narrowing. LEFT CAROTID CCA Velocities: Within normal limits. ICA Velocities Peak systolic 0.93 m/s. End diastolic 0.32 m/s. Proximal ICA/CCA peak systolic ratio 1.2. Heterogeneous plaque in the internal carotid with less than 50% luminal narrowing. VERTEBRAL ARTERIES: Antegrade flow. Normal waveforms. SUBCLAVIAN ARTERIES: No finding. OTHER: No other significant finding. IMPRESSION: NO HEMODYNAMICALLY SIGNIFICANT STENOSIS. COMMENT: Quality ID #[id number]: Velocity criteria are extrapolated from the diameter data as defined by t he Society of Radiologists in Ultrasound Consensus Conference. Radiology 2003: 229; 340-346. TECHNICAL DOCUMENTATION: JOB ID: [id number] 2010 [employer]- All Rights Reserved Reading location - IP/workstation name: [email or web address]
== END ==
LOC: SP 12:10
PROVIDERS: ATTEND Internal Medicine Cardiovascular Disease
DX: I65.23 Occlusion and stenosis of bilateral carotid arteries (principal)
CPT/HCPCS: 93880

== ENCOUNTER 2020-04-06 06:02 | Day surgery (SDC) | payer MEDICARE, OTHER ==
[2020-04-02 11:18] LABS: HEMATOCRIT 42.7 % (37.9-51.0); HEMOGLOBIN 14.8 g/dL (13.5-17.0); MEAN CORPUSCULAR HEMOGLOBIN 34.3 pg (27.0-33.4); MEAN CORPUSCULAR HGB CONC 34.7 g/dL (32.0-36.0); MEAN CORPUSCULAR VOLUME 99 fl (80-97); PLATELET COUNT 135 10^3/uL (150-450); RED BLOOD COUNT 4.33 10^6/uL (4.35-5.55); WHITE BLOOD COUNT 6.6 10^3/uL (4.0-10.5)
[2020-04-02 11:37] LABS: PROTHROMBIN TIME 14.4 SEC (11.4-15.4)
[2020-04-02 12:16] LABS: ANION GAP 9 (5-19); BLOOD UREA NITROGEN 25 mg/dL (7-20); CALCIUM 9.2 mg/dL (8.4-10.2); CARBON DIOXIDE 29 mmol/L (22-30); CHLORIDE 105 mmol/L (98-107); GLUCOSE 130 mg/dL (75-110); POTASSIUM 4.3 mmol/L (3.6-5.0)
--- NOTE | 2020-04-02 13:03 | EKG REPORT ---
SEVERITY:- ABNORMAL ECG - ATRIAL FIBRILLATION LOW VOLTAGE IN FRONTAL LEADS BORDERLINE T ABNORMALITIES, DIFFUSE LEADS : Confirmed by: Willie Vera MD 02-Apr-2020 13:02:20
[~2020-04-06 06:02] MED LIST changes: +CEFAZOLIN 1 GM/D5W RTU 1 GM/50 ML RTUPB IV ONE; +LIDOCAINE 0.5% INJ-PF (5 MG/ML) 50 ML SDV SUBCUT PRN
[2020-04-06] MEDS ORDERED: FENTANYL CITRATE INJ/PF 100 MCG/2 ML AMPUL ONE (06:38)
[2020-04-06] MEDS ORDERED: MIDAZOLAM 2 MG/2 ML INJ ONE (06:39)
[2020-04-06] MEDS ORDERED: PROPOFOL INJ 200 MG/20 ML VIAL IV ONE (06:39)
[2020-04-06] MEDS ORDERED: ONDANSETRON HCL INJ/PF 4 MG/2 ML SDV ONE (06:39)
[2020-04-06] MEDS ORDERED: EPHEDRINE SULFATE INJ 50 MG/1 ML AMPULE ONE (06:40)
[2020-04-06] MEDS ORDERED: SODIUM BICARBONATE 4.2% INJ (2.5 MEQ/5 ML) VIAL ONE (07:46)
[2020-04-06] MEDS ORDERED: LIDOCAINE 1%/EPINEPHRINE INJ 20 ML VIAL ONE (07:46)
[2020-04-06] MEDS ORDERED: MEPERIDINE HCL/PF INJ 25 MG/1 ML DISP.SYRIN IV PRN (08:32)
[2020-04-06] MEDS ORDERED: DIPHENHYDRAMINE HCL 50 MG/ML VIAL IV PRN (08:32)
[2020-04-06] MEDS ORDERED: OXYCODONE-ACETAMINOPHEN 5-325 MG TABLET PO PRN (08:32)
[2020-04-06] MEDS ORDERED: PROMETHAZINE HCL INJ 25 MG/1 ML VIAL IV PRN (08:32)
[2020-04-06] MEDS ORDERED: FENTANYL CITRATE INJ/PF 100 MCG/2 ML AMPUL IV PRN ×3 (08:32)
--- NOTE | 2020-04-06 09:28 | Operative Report ---
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 Frozen section was performed and margins were clear. Reconstruction was with a O to S plasty flap reconstruction. SURGEON: ADRIANNA PROCTOR ANESTHESIA: LMAC TISSUE REMOVED OR ALTERED: Basal cell carcinoma COMPLICATIONS: None ESTIMATED BLOOD LOSS: Minimal PROCEDURE: Patient seen and was marked prior to being brought into the operating room. Patient was brought into the operating room and placed on the operating room table in a sloppy lateral position. Patient was then prepped with a Betadine scrub and Betadine solution and draped in a sterile and aseptic manner. The area was then marked. 12 O'clock was marked towards the neck 3 O'clock was marked towards the chest 6:00 was marked towards the deltoid 9:00 was marked towards the back The area was then anesthetized with 1% lidocaine with epinephrine and bicarbonate for its anesthetic and hemostatic effects. The area was then excised and marked at 12:00. The specimen was sent for frozen section. The results came back that the deep and lateral margins were free. We had considered a primary closure but this would go against the natural relaxed skin tension lines. A primary closure would be too tight and would have increased chance of dehiscence. This will leave more of a scar so we decided to use a O to S flap reconstruction which would camouflage the scar better and take tension off of the closure so that would be less chances of complications. In making the decision for the flap we tested multiple other possible options and it was felt that a direct primary closure was going to be too tight and be pulled with movement of the shoulder. With this flap this will allow us to re-distribute the forces redistribute the scar and use tissue where there is more laxity than at the apex of the shoulder where there was minimal tissue and it was very tight. Then we went ahead and outlined the flap and anesthetized it. We then incised the flap and developed a flap maintaining the subdermal plexus. Then we undermined 360 to allow for plate like scarring and minimize trap door deformity. Throughout the case hemostasis was achieved with the bipolar. We then sutured the flap into its new position using 3-0 Vicryl for the subcutaneous and deep dermis. Skin was closed with a running subcuticular suture stitch using 3-0 PDS with knots being tied on the outside. And was suture was used for support and placed in the central area of the incision. We then applied tincture benzoin and Steri-Strips followed by a light pressure dressing. Patient was then reversed from anesthesia and taken to the [facility] for recovery. The patient tolerated well. There were no complications. Lesion size was approximately 3 cm please see pathology for actual size. Portions of this note may be dictated using [employer] voice recognition software. Occasional variations and spelling and vocabulary could be possible and are unintentional. Additionally, there is a chance that some errors may not be caught or corrected. Please notify the author of any discrepancies noted or if any statements are unclear. Subjective: No complaints Objective: Vital signs stable afebrile No bleeding Dressing intact Assessment and plan: Doing well. Elevate the operative site. Resume medications. Take antibiotics for 1 day Follow-up Full instructions were given to the patient and family and they understand Portions of this note may be dictated using [employer] voice recognition software. Occasional variations and spelling and vocabulary could be possible and are unintentional. Additionally, there is a chance that some errors may not be caught or corrected. Please notify the offer of any discrepancies noted or if any statements are unclear.
--- NOTE | 2020-04-06 09:30 | Discharge Summary ---
Discharge Summary (SDC) - Discharge Final Diagnosis: Basal cell carcinoma of the right shoulder Date of Surgery: 04/06/20 Condition: Good Treatment or Instructions: Leave the top dressing on for 2 days, then removed. Leave the steri-strip tapes on for 5 days, then removal. Then cleaning wound with peroxide and apply /bacitracin 3 times per day. Antibiotics for 1 day, then discontinue. Elevate operative area to decrease swelling. Do not strain, or lift heavy objects. Call for excessive bleeding, increased temperature of 101, uncontrolled pain, or excessive nausea or vomiting. You may reach Dr. Waters through his office at [phone]. In the event of an emergency after hours, then contact Dr. [facility] through [facility]. Return to the office for a postop check on . The time will be scheduled by the nursing staff of [facility] prior to discharge. Please give the patient a copy of their labs and EKG so they can bring this to their PMD. Thank you Portions of this note may be dictated using [employer] voice recognition software. Occasional variations and spelling and vocabulary could be possible and are unintentional. Additionally, there is a chance that some errors may not be caught or corrected. Please notify the offer of any discrepancies noted or if any statements are unclear. Referrals: BRYANNA COLLINS MD [Primary Care Provider] - Discharge Diet: As Tolerated Discharge Activity: No Lifting/Push/Pulling Report the Following to Your Physician Immediately: Unusual Bleeding - Keep torso elevated. Do not over extend the shoulder. Take antibiotics today and tomorrow then stop. Resume Eliquis tonight. Restart any other medications that you stop for the surgery tomorrow. Take your regular medications today except for the ones that were stopped for surgery. Follow-up on Sunday.
[2020-04-06 14:02] VITALS: BP 115/67
== END 2020-04-06 11:17 | disposition home or self-care (01) ==
LOC: OROUT 06:02
PROVIDERS: ATTEND Plastic Surgery
DX: L57.0 Actinic keratosis (principal); L82.1 Other seborrheic keratosis; L90.5 Scar conditions and fibrosis of skin; I10 Essential (primary) hypertension; G47.30 Sleep apnea, unspecified; K21.9 Gastro-esophageal reflux disease without esophagitis; M19.90 Unspecified osteoarthritis, unspecified site; Z85.828 Personal history of other malignant neoplasm of skin; Z79.01 Long term (current) use of anticoagulants; Z79.899 Other long term (current) drug therapy; Z79.82 Long term (current) use of aspirin; Z03.818 Encounter for observation for suspected exposure to other biological agents ruled out; Z86.73 Personal history of transient ischemic attack (TIA), and cerebral infarction without residual deficits; Z87.891 Personal history of nicotine dependence
CPT/HCPCS: 14000; 93005; 36415 ×2; 84132; 85027; 85610; 85730; 80048; 88305 ×2; 88331 ×2; 93010; 00300; U0003; J2250; J0690; J3490 ×3; J3010; J2405; J2704; C9803; 300; 87635